=== PATIENT | male | born 1950 | race Caucasian/White ===

== ENCOUNTER 2018-03-21 18:24 | Outpatient (REF) | payer MEDICARE, SELFPAY ==
[2018-03-21 19:32] LABS: Uric Acid 8.3 mg/dL (3.5-7.2)
== END 2018-03-21 18:44 ==
LOC: NCHCN 18:24
PROVIDERS: PCP Physician Assistant; Visit Provider Nurse Practitioner Family
DX: M25.561 Pain in right knee (principal)
CPT/HCPCS: 84550

== ENCOUNTER 2018-05-06 15:25 | Outpatient (REF) | payer MEDICARE, BC, SELFPAY ==
[2018-05-06 19:31] LABS: Abs Immature Grans 0.01 k/cumm (0.0-0.09); Absolute Basophil Count 0.03 k/cumm (0.0-0.2); Absolute Eosinophil Count 0.07 k/cumm (0.0-0.7); Absolute Lymphocyte Count 1.91 k/cumm (1.2-3.4); Absolute Monocyte Count 0.73 k/cumm (0.11-0.7); Absolute Neutrophil Count 6.16 k/cumm (1.2-6.7); Basophils % 0.3; Eosinophils % 0.8; HCT 41.2 % (40.0-50.0); HGB 13.9 g/dL (13.5-17.5); Immature Grans % 0.1; Lymphocytes % 21.4; Mean Corp. HGB Concentration 33.7 g/dL (32.0-36.0); Mean Corpuscular Hemoglobin 30.7 pg (27.0-33.0); Mean Corpuscular Volume 90.9 fL (80-95); Mean Platelet Volume 10.9 fL (8.0-11.0); Monocytes % 8.2; Neutrophils % 69.2; Platelet Count 231 x1000/uL (130-400); RBC 4.53 m/cumm (4.50-6.00); RBC Distribution Width 12.8 % (11.8-14.1); White Blood Cell Count 8.91 k/cumm (4.4-10.8)
[2018-05-06 21:11] LABS: ALT 24 U/L (12-78); AST 18 U/L (15-37); Albumin 4.2 g/dL (3.4-5.0); Alkaline Phosphatase 98 U/L (46-116); Anion Gap 13.9 mmol/L (3-11); BUN 19 mg/dL (7-18); Bilirubin, Total 0.4 mg/dL (0.2-1.0); CO2 24.1 mmol/L (21.0-32.0); CREATININE 1.35 mg/dL (0.70-1.30); Calcium 8.7 mg/dL (8.5-10.1); Chloride 104 mmol/L (98-107); Creatine Kinase 133 U/L (39-308); Estimated GFR 53.04 (mL/min/1.73m2); Glucose 98 mg/dL (70-100); Potassium 4.1 mmol/L (3.5-5.1); Sodium 142 mmol/L (136-145); TSH (W/Ref FT4) 2.08 uIU/mL (0.358-3.74); Total Protein 7.1 g/dL (6.4-8.2)
[2018-05-09 10:50] LABS: Rheumatoid Factor <8 IU/mL (<12.5)
[2018-05-09 14:32] LABS: ANA Interpretation Positive (NEGAT); ANA Titer Pattern 1:320 Speckled
[2018-05-11 12:38] LABS: c-ANCA Negative (Negative); p-ANCA Negative (Negative)
== END 2018-05-06 15:45 ==
LOC: NCHCN 15:25
PROVIDERS: PCP Physician Assistant; Visit Provider Nurse Practitioner Family
DX: R03.0 Elevated blood-pressure reading, without diagnosis of hypertension (principal); R53.83 Other fatigue; R53.81 Other malaise; M25.561 Pain in right knee; M77.12 Lateral epicondylitis, left elbow
CPT/HCPCS: 80053; 82550; 84443; 85025; 86038; 86255; 86431

== ENCOUNTER 2020-07-04 14:54 | Outpatient (REF) | payer MEDICARE, BC, SELFPAY ==
[2020-07-04 15:03] LABS: Anion Gap 11.3 mmol/L (3-11); BUN 25 mg/dL (7-18); CO2 26.7 mmol/L (21.0-32.0); CREATININE 1.4 mg/dL (0.70-1.30); Calcium 9.2 mg/dL (8.5-10.1); Calculated LDL 115 mg/dL (<100); Chloride 104 mmol/L (98-107); Cholesterol 200 mg/dL (<200); Estimated GFR 50.55 (mL/min/1.73m2); Glucose 88 mg/dL (74-106); HDL Cholesterol 57 mg/dL (40-60); Potassium 4.1 mmol/L (3.5-5.1); Sodium 142 mmol/L (136-145); Triglyceride 140 mg/dL (<150)
[2020-07-04 22:27] LABS: PSA, Screening 3.3 ng/mL (0.0-4.5)
== END 2020-07-04 14:55 | disposition home or self-care (01) ==
LOC: NCHCN 14:54
PROVIDERS: PCP Physician Assistant; Visit Provider Physician Assistant
DX: R03.0 Elevated blood-pressure reading, without diagnosis of hypertension (principal); R79.89 Other specified abnormal findings of blood chemistry; Z12.5 Encounter for screening for malignant neoplasm of prostate; Z13.6 Encounter for screening for cardiovascular disorders
CPT/HCPCS: 80048; 80061; 84153

== ENCOUNTER 2021-06-23 15:01 | Outpatient (REF) | payer MEDICARE, BC, SELFPAY ==
[2021-06-23 19:12] LABS: Abs Immature Grans 0.03 10^3/uL (0.0-0.06); Absolute Basophil Count 0.06 10^3/uL (0.0-0.2); Absolute Eosinophil Count 0.09 10^3/uL (0.0-0.7); Absolute Monocyte Count 1.08 10^3/uL (0.1-0.8); Absolute Neutrophil Count 8.82 10^3/uL (1.2-6.7); Basophils % 0.5; Eosinophils % 0.8; HCT 39.8 % (40.0-50.0); HGB 12.7 g/dL (13.5-17.5); Immature Grans % 0.3; Lymphocytes % 14.4; MCHC 31.9 % (32.0-36.0); MCV 93.9 fL (80-95); MPV 9.7 fL (8.0-11.0); Monocytes % 9.2; Neutrophils % 74.8; Nucleated RBC 0 %; Platelet Count 309 10^3/uL (130-400); RBC 4.24 10^6/uL (4.36-5.78); RDW 12.1 % (11.8-14.1); RDW-SD 41.4 fL; WBC 11.79 10^3/uL (4.4-10.8)
[2021-06-23 19:39] LABS: Anion Gap 12.7 mmol/L (3-11); BUN 21 mg/dL (7-18); CO2 24.3 mmol/L (21.0-32.0); CREATININE 1.3 mg/dL (0.70-1.30); Calcium 8.6 mg/dL (8.5-10.1); Chloride 102 mmol/L (98-107); Glucose 82 mg/dL (74-106); Sodium 139 mmol/L (136-145); TSH (W/Ref FT4) 2.62 uIU/mL (0.36-3.74); Uric Acid 7.4 mg/dL (3.5-7.2)
[2021-06-24 16:48] LABS: PSA, Screening 2.2 ng/mL (0.0-4.5)
== END 2021-06-23 15:02 | disposition home or self-care (01) ==
LOC: NCHCN 15:01
PROVIDERS: PCP Physician Assistant; Visit Provider Family Medicine
DX: R61 Generalized hyperhidrosis (principal); M10.9 Gout, unspecified; N28.9 Disorder of kidney and ureter, unspecified; Z12.5 Encounter for screening for malignant neoplasm of prostate
CPT/HCPCS: 80048; 84153; 84443; 84550; 85025

== ENCOUNTER 2023-04-07 09:22 | Outpatient (REF) | payer MEDICARE, BC, SELFPAY ==
[2023-04-07 15:56] LABS: HCT 43.9 % (40.0-50.0); HGB 14.6 g/dL (13.5-17.5); MCH 30.9 pg (27.0-33.0); MCHC 33.3 % (32.0-36.0); MCV 93 fL (80-95); MPV 10.5 fL (8.0-11.0); Platelet Count 197 10^3/uL (130-400); RBC 4.72 10^6/uL (4.36-5.78); RDW 12.1 % (11.8-14.1); WBC 6.19 10^3/uL (4.4-10.8)
[2023-04-07 16:25] LABS: ALT 35 U/L (16-63); AST 26 U/L (15-37); Albumin 4.1 g/dL (3.4-5.0); Alkaline Phosphatase 95 U/L (46-116); Anion Gap 8.2 mmol/L (3-11); BUN 26 mg/dL (7-18); Bilirubin, Total 0.6 mg/dL (0.2-1.0); CO2 26.8 mmol/L (21.0-32.0); CREATININE 1.5 mg/dL (0.70-1.30); Calcium 9.2 mg/dL (8.5-10.1); Calculated LDL 113 mg/dL (<100); Chloride 105 mmol/L (98-107); Cholesterol 187 mg/dL (<200); Estimated GFR 49.77 (mL/min/1.73m2); Glucose 104 mg/dL (74-106); HDL Cholesterol 53 mg/dL (40-60); Potassium 4.6 mmol/L (3.5-5.1); Sodium 140 mmol/L (136-145); Total Protein 6.9 g/dL (6.4-8.2); Triglyceride 105 mg/dL (<150)
[2023-04-07 16:52] LABS: FREE T4 0.88 ng/dL (0.76-1.46); Uric Acid 8.6 mg/dL (3.5-7.2)
[2023-04-07 23:02] LABS: PSA, Screening 3.2 ng/mL (<=6.5)
== END 2023-04-07 09:23 | disposition home or self-care (01) ==
LOC: NCHCN 09:22
PROVIDERS: PCP Physician Assistant; Visit Provider Physician Assistant
DX: Z12.5 Encounter for screening for malignant neoplasm of prostate (principal); M10.9 Gout, unspecified; Z87.820 Personal history of traumatic brain injury; N28.9 Disorder of kidney and ureter, unspecified; E78.5 Hyperlipidemia, unspecified
CPT/HCPCS: 80053; 80061; 84153; 85027; 84439; 84443; 84550

== ENCOUNTER 2023-12-15 10:23 | Outpatient (REF) | payer MEDICARE, BC, SELFPAY ==
[2023-12-15 16:44] LABS: HCT 42.9 % (40.0-50.0); HGB 14.4 g/dL (13.5-17.5); MCH 31.2 pg (27.0-33.0); MCHC 33.6 % (32.0-36.0); MCV 93 fL (80-95); MPV 10.6 fL (8.0-11.0); Platelet Count 200 10^3/uL (130-400); RBC 4.62 10^6/uL (4.36-5.78); RDW 12.2 % (11.8-14.1); RDW-SD 41.9 fL; WBC 6.26 10^3/uL (4.4-10.8)
[2023-12-15 17:47] LABS: Anion Gap 9.9 mmol/L (3-11); BUN 29 mg/dL (7-18); CO2 25.1 mmol/L (21.0-32.0); CREATININE 1.8 mg/dL (0.70-1.30); Calcium 8.8 mg/dL (8.5-10.1); Chloride 107 mmol/L (98-107); Estimated GFR 39.75 (mL/min/1.73m2); Glucose 96 mg/dL (74-106); Potassium 4.5 mmol/L (3.5-5.1); Sodium 142 mmol/L (136-145); Uric Acid 9.5 mg/dL (3.5-7.2)
[2023-12-15 19:09] LABS: Calculated LDL 111 mg/dL (<100); Cholesterol 185 mg/dL (<200); HDL Cholesterol 61 mg/dL (40-60); Triglyceride 65 mg/dL (<150)
== END 2023-12-15 10:24 | disposition home or self-care (01) ==
LOC: NCHCN 10:23
PROVIDERS: PCP Physician Assistant; Visit Provider Physician Assistant
DX: E78.5 Hyperlipidemia, unspecified (principal); M10.9 Gout, unspecified
CPT/HCPCS: 80048; 80061; 85027; 84550

== ENCOUNTER 2024-12-15 08:16 | Outpatient (REF) | payer MEDICARE, SELFPAY ==
[2024-12-15 16:34] LABS: HCT 43.1 % (40.0-50.0); HGB 14.4 g/dL (13.5-17.5); MCH 30.9 pg (27.0-33.0); MCHC 33.4 % (32.0-36.0); MCV 93 fL (80-95); MPV 10.7 fL (8.0-11.0); Platelet Count 181 10^3/uL (130-400); RBC 4.66 10^6/uL (4.36-5.78); RDW 12.2 % (11.8-14.1); RDW-SD 41.5 fL; WBC 6.68 10^3/uL (4.4-10.8)
[2024-12-15 16:46] LABS: ALT 27 U/L (16-63); AST 18 U/L (15-37); Albumin 3.9 g/dL (3.4-5.0); Alkaline Phosphatase 92 U/L (46-116); Anion Gap 8.8 mmol/L (3-11); BUN 25 mg/dL (7-18); Bilirubin, Total 0.6 mg/dL (0.2-1.0); CO2 29.2 mmol/L (21.0-32.0); Calcium 8.8 mg/dL (8.5-10.1); Chloride 106 mmol/L (98-107); Estimated GFR 49.16 (mL/min/1.73m2); Glucose 92 mg/dL (74-106); Potassium 4.6 mmol/L (3.5-5.1); Sodium 144 mmol/L (136-145); Total Protein 6.7 g/dL (6.4-8.2); Uric Acid 8.6 mg/dL (3.5-7.2)
[2024-12-15 17:03] LABS: Calculated LDL 129 mg/dL (<100); Cholesterol 200 mg/dL (<200); HDL Cholesterol 50 mg/dL (>or=40); Triglyceride 109 mg/dL (<150)
== END 2024-12-15 08:17 | disposition home or self-care (01) ==
LOC: NCHCN 08:16
PROVIDERS: PCP Physician Assistant; Visit Provider Physician Assistant
DX: E78.5 Hyperlipidemia, unspecified (principal); M10.9 Gout, unspecified
CPT/HCPCS: 80053; 80061; 85027; 84550

== ENCOUNTER 2025-04-29 15:29 | Emergency (ER) | payer MEDICARE, SELFPAY ==
[2025-04-29] VITALS (33 sets, daily range): BP systolic 129–190; BP diastolic 73–110; PULSE 38–79; RESP 15–29; TEMP 36.4; O2SAT 94–99
--- NOTE | 2025-04-29 15:30 | RT.EKG_ITS ---
APPROVED REPORT Exam: Resting ECG Reason for Exam: irregualar heart beat per palpation - low heart ra Patient Location: E HR:62 bpm ECG Measurements Heart Rate 62 AXIS MD 232 P 56 QRSd 101 QRS 11 QT 440 T -48 QTc 440 Conclusion Sinus rhythm...normal P axis, V-rate 60- 99 Multiform ventricular premature complexes...short R-R, variable morphology Prolonged MD interval...MD >220, V-rate 50- 90 Probable left atrial enlargement...P >50mS, <-0.10mV V1 No Occlusion NC
[2025-04-29 17:15] LABS: Abs Immature Grans 0.03 10^3/uL (0.0-0.06); HCT 42.8 % (40.0-50.0); HGB 14.5 g/dL (13.5-17.5); Immature Grans % 0.3 %; MCH 31.0 pg (27.0-33.0); MCHC 33.9 % (32.0-36.0); MCV 92 fL (80-95); MPV 10.0 fL (8.0-11.0); Platelet Count 186 10^3/uL (130-400); RBC 4.67 10^6/uL (4.36-5.78); RDW 12.2 % (11.8-14.1); RDW-SD 40.8 fL; WBC 10.74 10^3/uL (4.4-10.8)
[2025-04-29 17:34] LABS: Magnesium 2.1 mg/dL (1.6-2.6); Troponin I 10 ng/L (<54)
[2025-04-29 17:35] LABS: ALT 20 U/L (10-49); AST 26 U/L (<34); Albumin 4.7 g/dL (3.2-5.0); Alkaline Phosphatase 90 U/L (46-116); Anion Gap 8.7 mmol/L (3-11); BUN 24 mg/dL (9-23); Bilirubin, Total 0.60 mg/dL (0.2-1.2); CO2 26.3 mmol/L (20.0-31.0); Calcium 9.3 mg/dL (8.3-10.6); Chloride 107 mmol/L (98-107); Glucose 111 mg/dL (74-106); Potassium 4.2 mmol/L (3.5-5.1); Sodium 142 mmol/L (136-145); Total Protein 7.6 g/dL (5.7-8.2)
[2025-04-29 17:37] LABS: TSH (W/Ref FT4) 2.43 uIU/mL (0.55-4.78)
[2025-04-29 18:29] LABS: Glucose Negative (Negative)
[2025-04-29 18:36] LABS: C & S Indicated? No; RBC Negative HPF (0-2); WBC Negative HPF (0-5)
[2025-04-29 18:44] LABS: Troponin I 12 ng/L (<54)
--- NOTE | 2025-05-01 08:17 | W.ED.GENAD ---
Discharge Plan Disposition Patient Disposition: Home Condition: Stable Discharge Details Clinical Impression: Heart palpitations, Nausea & vomiting Primary Care Provider: Catarino Royal ED Provider: Seema Rainey Home Meds and New Rx's Prescriptions: Continued ofloxacin [Ocuflox] 0.3 % drops See Rx Instructions ophthalmic (eye) .COMPLEX Qty: 10 0RF Rx Instructions: put 2 drps into both eye(s) every 2 h x 2 days while awake, then 2 drps 4 times/day days 3-7 ophthalmic (eye) thiamine HCl (vitamin B1) 1 tab PO DAILY folic acid 1 tab PO DAILY multivitamin [Daily Multi-Vitamin] Tablet 1 tab PO DAILY Discharge Instructions Instructions: Palpitations (DC), Nausea and vomiting in adults Additional Instructions: Follow-up with Catarino Royal for outpatient Holter monitor or Zio patch If you develop any nausea or vomiting during activity, you should be reevaluated immediately as this could potentially be your heart although it sounds like this came on at rest. Try to keep a journal to see when you experience the symptoms to see if there are any exacerbating factors If you feel dizzy, weak, have persistent nausea or vomiting, chest pain, please be reevaluated immediately Stand Alone Forms: Portal Information Discharge Data Discharge Date/Time-TO BE ENTERED AT DEPARTURE: 04/29/25 19:47 HPI General Date/Time Provider Initiated Documentation: 04/29/25 15:53. HPI Narrative: 74-year-old male with history of TBI presents with report of nausea and vomiting with some palpitations. palpated pulse and thought it was slow and regular which is when they present. Patient states he otherwise feels quite well and denies any symptoms. Denies any chest pain or shortness of breath. Denies any dizziness or weakness. Denies any current symptoms. States that nausea and vomiting were transient. They were not associated with exertion denies history of similar symptoms in the past. Related Data Home Medications ?Medication ?Instructions ?Recorded ?Confirmed ofloxacin 0.3 % eye drops (Ocuflox) See Rx Instructions ophthalmic 08/31/23 04/29/25 (eye) .COMPLEX #10 mL folic acid 1 tab PO DAILY 04/29/25 04/29/25 multivitamin (Daily Multi-Vitamin 1 tab PO DAILY 04/29/25 04/29/25 tablet) thiamine HCl (vitamin B1) 1 tab PO DAILY 04/29/25 04/29/25 Previous Rx's ?Medication ?Instructions ?Recorded ofloxacin 0.3 % eye drops (Ocuflox) See Rx Instructions ophthalmic 08/31/23 (eye) .COMPLEX #10 mL Allergies Allergy/AdvReac Type Severity Reaction Status Date / Time No Known Allergies Allergy Verified 04/29/25 16:29 General Stated Complaint: Palpitatns LEONORA: 3 Exam Narrative Exam Narrative: 74-year-old male in no acute distress answering questions appropriately sinus bradycardia ambulatory with steady gait no respiratory distress no abdominal tenderness. Alert and oriented x 4 Course Vital Signs Vital signs: Vital Signs Temperature 36.4 C L 04/29/25 15:38 Pulse 55 L 04/29/25 15:38 Respiratory Rate 16 04/29/25 15:38 Blood Pressure 159/110 H 04/29/25 15:38 Pulse Oximetry 94 04/29/25 15:38 Temperature 36.4 C L 04/29/25 15:38 Temperature Source Oral 04/29/25 15:38 Pulse 59 L 04/29/25 19:33 Pulse 65 04/29/25 19:33 Respiratory Rate 23 04/29/25 19:33 Blood Pressure 151/81 H 04/29/25 19:33 Blood Pressure Mean 103 04/29/25 19:33 Pulse Oximetry 96 04/29/25 19:33 Lab/Test Results Lab/Test Results: Laboratory Tests Range/Units 04/29/25 04/29/25 17:11 18:20 WBC (4.4-10.8) 10^3/uL 10.74 RBC (4.36-5.78) 10^6/uL 4.67 Hgb (13.5-17.5) g/dL 14.5 Hct (40.0-50.0) % 42.8 MCV (80-95) fL 92 MCH (27.0-33.0) pg 31.0 MCHC (32.0-36.0) % 33.9 RDW (11.8-14.1) % 12.2 Plt Count (130-400) 10^3/uL 186 MPV (8.0-11.0) fL 10.0 Immature Gran % % 0.3 Neutrophils % % 83.8 Lymphocytes % % 11.2 Monocytes % % 4.3 Eosinophils % % 0.1 Basophils % % 0.3 Nucleated RBC % (0.0-0.3) % 0.0 Absolute Neutrophils (1.2-6.7) 10^3/uL 9.01 H Absolute Lymphocytes (1.2-3.4) 10^3/uL 1.20 Absolute Monocytes (0.1-0.8) 10^3/uL 0.46 Absolute Eosinophils (0.0-0.7) 10^3/uL 0.01 Absolute Basophils (0.0-0.2) 10^3/uL 0.03 Sodium (136-145) mmol/L 142 Potassium (3.5-5.1) mmol/L 4.2 Chloride (98-107) mmol/L 107 Carbon Dioxide (20.0-31.0) mmol/L 26.3 Anion Gap (3-11) mmol/L 8.7 BUN (9-23) mg/dL 24 H Creatinine (0.73-1.18) mg/dL 1.50 H Est GFR (CKD-EPI 2020) (mL/min/1.73m2) 45.95 Glucose (74-106) mg/dL 111 H Calcium (8.3-10.6) mg/dL 9.3 Magnesium (1.6-2.6) mg/dL 2.1 Total Bilirubin (0.2-1.2) mg/dL 0.60 AST (<34) U/L 26 ALT (10-49) U/L 20 Alkaline Phosphatase (46-116) U/L 90 Troponin I (<54) ng/L 10 12 Total Protein (5.7-8.2) g/dL 7.6 Albumin (3.2-5.0) g/dL 4.7 TSH (0.55-4.78) uIU/mL 2.43 Urine Color (Yellow) Yellow Urine Clarity (Clear) Clear Urine pH (5-8) 6.0 Ur Specific [place] (1.005-1.025) 1.025 Urine Protein (Neg-Trace) mg/dL 100 H Urine Ketones (Negative) mg/dL 15 H Urine Blood (Negative) Negative Urine Nitrite (Negative) Negative Urine Bilirubin (Negative) Negative Urine Urobilinogen (Up to 0.2) mg/dL 0.2 Ur Leukocyte Esterase (Negative) Negative Urine RBC (0-2) HPF Negative Urine WBC (0-5) HPF Negative Ur Epithelial Cells (Negative) HPF Negative Urine Crystals (Negative) HPF Negative Urine Bacteria (Negative) HPF Negative Urine Casts (Negative) LPF Negative Urine Mucus (Negative) Negative Urine Other (Negative) Negative Ur Culture Indicated? No Urine Glucose (Negative) mg/dL Negative Medical Decision Making Results: Diagnostic blood work does not show evidence of acute abnormality when compared to prior, creatinine 1.5 and BUN 24 not grossly change troponins negative x 2, EKG with PVCs sinus bradycardia Assessment and plan: Patient with unusual presentation some episode of nausea and vomiting. Heart rate seems consistent with patient's prior he has some PVCs which he may have been symptomatic with. Encourage outpatient Holter monitor. Patient has a reassuring cardiac workup otherwise and was maintained on telemetry throughout this encounter and has been asymptomatic. At this point he is stable for discharge home, his electrolytes are within normal limits. Return precautions reviewed and patient encouraged to see his primary care physician within the next 48 hours for reassessment and review PFSH All Active Problems (Updated 04/29/25 @ 19:30 by VANDANA Dickens) Nausea & vomiting (Acute) Heart palpitations (Acute) Social History Smoking risk assessment performed?: No
== END 2025-04-29 19:47 | disposition home or self-care (01) ==
PROVIDERS: Emergency Provider Physician Assistant; PCP Physician Assistant
DX: R11.2 Nausea with vomiting, unspecified (principal); R00.2 Palpitations; R94.31 Abnormal electrocardiogram [ECG] [EKG]
CPT/HCPCS: 36415; 80053; 93005; 99284; 81003; 81015; 83735; 84443; 84484; 85025; 93010

== ENCOUNTER 2025-05-25 10:43 | Outpatient (CLI) | payer MEDICARE, SELFPAY | END 2025-05-25 10:44 | disposition home or self-care (01) | LOC: CARDOPNVT 10:43 | PROVIDERS: PCP Physician Assistant; Visit Provider Physician Assistant | DX: I49.9 Cardiac arrhythmia, unspecified (principal) | CPT/HCPCS: 93270 ==